=== PATIENT | female | born 1985 | race American Indian/Alaskan Native ===

== ENCOUNTER 2017-06-28 21:59 | Inpatient (IN) | payer SELFPAY ==
[2017-06-28 23:08] LABS: Basophils % (Auto) 0.2 % (0.0-1.8); Hematocrit 39.3 % (30.3-42.9); Hemoglobin 13.3 gm/dl (10.1-14.3); Mean Corpuscular HGB Conc 34 % (30-34); Mean Corpuscular Hemoglobin 27 pg (28-32); Mean Corpuscular Volume 78 fl (79-97); Platelet Count 488 K/mm3 (140-440); Red Blood Count 5.02 M/mm3 (3.65-5.03); Red Cell Distribution Width 14.6 % (13.2-15.2); White Blood Count 5.8 K/mm3 (4.5-11.0)
[2017-06-28 23:16] LABS: Anion Gap 26 mmol/L; Blood Urea Nitrogen 29 mg/dL (7-17); Carbon Dioxide 17 mmol/L (22-30); Chloride 97.8 mmol/L (98-107); Glucose 101 mg/dL (65-100); Potassium 4.7 mmol/L (3.6-5.0); Sodium 136 mmol/L (137-145)
[2017-06-29] MEDS ORDERED: NACL 0.9% 1000 ML 1,000 ML IV ONE (09:35)
[2017-06-29] MEDS ORDERED: INDERAL PO ONE (09:38)
--- NOTE | 2017-06-29 09:57 | Emergency Department Report ---
ED General Adult HPI - General Chief complaint: Chest Pain Stated complaint: CHEST PAIN Time Seen by Provider: 06/29/17 09:00 Source: patient Mode of arrival: Ambulatory Limitations: No Limitations - History of Present Illness Initial comments: 31 y/o female complain of chest pain ,n/v and weight lose of greater than 6O lb over the last couple month .pt state generalized weakness . Patient was emancipated. Currently complaining of chest pain 01/11. Patient current has a history of hypothyroidism. Patient is currently non compliant with Inderal. Onset/Timin -: days(s) Severity scale (0 -10): 5 Quality: aching Consistency: constant Improves with: none Worsens with: none Associated Symptoms: chest pain - Related Data Allergies Allergy/AdvReac Type Severity Reaction Status Date / Time almonds Allergy Unknown Uncoded 06/28/17 22:09 cashews Allergy Unknown Uncoded 06/28/17 22:09 mustard Allergy Unknown Uncoded 06/28/17 22:10 peanuts Allergy Unknown Uncoded 06/28/17 22:09 ED Review of Systems ROS: Stated complaint: CHEST PAIN Other details as noted in HPI Constitutional: malaise Eyes: denies: eye pain, eye discharge, vision change ENT: denies: ear pain, throat pain Respiratory: denies: cough, shortness of breath, wheezing Cardiovascular: chest pain, palpitations Endocrine: no symptoms reported, unexplained weight loss Gastrointestinal: denies: abdominal pain, nausea, diarrhea Genitourinary: denies: urgency, dysuria, discharge Musculoskeletal: denies: back pain, joint swelling, arthralgia Skin: denies: rash, lesions Neurological: denies: headache, weakness, paresthesias Psychiatric: denies: anxiety, depression Hematological/Lymphatic: denies: easy bleeding, easy bruising ED Past Medical Hx - Past Medical History Additional medical history: Hyperthyroidism - Surgical History Additional Surgical History: ectopic - Social History Smoking Status: Never Smoker Substance Use Type: None ED Physical Exam - General Limitations: No Limitations General appearance: alert, in no apparent distress - Head Head exam: Present: atraumatic, normocephalic - Eye Eye exam: Present: normal appearance - ENT ENT exam: Present: mucous membranes moist - Neck Neck exam: Present: normal inspection - Respiratory Respiratory exam: Present: normal lung sounds bilaterally. Absent: respiratory distress - Cardiovascular Cardiovascular Exam: Present: regular rate, normal rhythm. Absent: systolic murmur, diastolic murmur, rubs, gallop - GI/Abdominal GI/Abdominal exam: Present: soft, normal bowel sounds - Extremities Exam Extremities exam: Present: normal inspection - Back Exam Back exam: Present: normal inspection - Neurological Exam Neurological exam: Present: alert, oriented X3 - Psychiatric Psychiatric exam: Present: normal affect, normal mood - Skin Skin exam: Present: warm, dry, intact, normal color. Absent: rash ED Course Vital Signs 06/28/17 06/29/17 06/29/17 22:12 02:06 09:08 Temperature 98.4 F 98.3 F Pulse Rate 136 H 97 H 104 H Respiratory 18 18 18 Rate Blood Pressure 152/98 131/74 Blood Pressure 103/64 [Left] O2 Sat by Pulse 98 100 97 Oximetry ED Medical Decision Making - Lab Data Result diagrams: 06/28/17 22:34 06/28/17 22:34 - Medical Decision Making consult with Dr. Lock for admission .pt had abnormal labs and VS .TSH <0.005 and free T4 7.77H consult with for admission Critical care attestation.: If time is entered above; I have spent that time in minutes in the direct care of this critically ill patient, excluding procedure time. ED Disposition Condition: Stable Referrals: PRIMARY CARE, [Primary Care Provider] - 3-5 Days
--- NOTE | 2017-06-29 10:09 | XRay Report ---
ROUTINE CHEST, TWO VIEWS: HISTORY: Tachycardia. The trachea, heart, mediastinal contour, lung perez and bony thorax are unremarkable. IMPRESSION: Unremarkable chest x-ray.
[2017-06-29] MEDS ORDERED: LUGOL'S SOLUTION 5% PO STA (10:19)
[2017-06-29 10:34] LABS: Magnesium 2.2 mg/dL (1.7-2.3)
[2017-06-29] MEDS ORDERED: DULCOLAX PR PRN (10:51)
[2017-06-29] MEDS ORDERED: MILK OF MAGNESIA PO PRN (10:51)
[2017-06-29] MEDS ORDERED: TYLENOL PO PRN (10:51)
[2017-06-29] MEDS ORDERED: ZOFRAN IV PRN (10:51)
[2017-06-29 11:20] LABS: INR 1.27 (0.87-1.13)
[2017-06-29] MEDS ORDERED: LOPRESSOR PO SCH (14:00)
[2017-06-30] MEDS ORDERED: LOPRESSOR PO SCH (02:00)
--- NOTE | 2017-06-30 02:35 | Admit Criteria Form ---
Admission Criteria Documentation: CARDIOLOGY GRG Clinical Indications for Admission to Inpatient Care ( Place 'X' for any and all applicable criteria): Hospital admission is needed for appropriate care of the patient because of ANY ONE of the following (1): [ ] I. Hemodynamic instability as indicated by ALL of the following (1)(2)(3) (4)(5) [ ]a) Vital signs or other findings not as expected for chronic patient condition or baseline [ ]b) Instability indicated by ANY ONE of the following: [ ]i) Hypotension [ ]ii) Symptomatic Tachycardia unresponsive to treatment ( e.g., analgesia, fluids, sedation as indicated) [ ]iii) Inadequate perfusion indicated by ANY ONE of the following: [ ] 1) Lactic acidosis (> 2 mmol/L) [ ] 2) New abnormal capillary refill (> 3 seconds) [ ] 3) Reduced urine output [ ] 4) New altered mental status [ ]iv) Orthostatic vital sign changes unresponsive to treatment (e.g., fluids) [ ]v) IV inotropic or vasopressor medication required to maintain adequate blood pressure or perfusion [ ] II. Severe heart failure as indicated by ANY ONE of the following(17)(18) [ ]a) Respiratory distress [ ]b) Hypotension [ ]c) Anasarca (refractory to outpatient therapy) [ ]d) Cardiac arrhythmias of immediate concern [ ]e) Myocardial ischemia [ ] III. Cardiac arrhythmias or findings of immediate concern indicated by ANY ONE of the following (19)(20): [ ] a) Heart rhythms that are inherently dangerous or unstable indicated by ANY ONE of the following (21)(22)(23): [ ] i) Resuscitated ventricular fibrillation or cardiac arrest [ ] ii) Ventricular escape rhythm [ ] iii) Sustained ventricular tachycardia (30 seconds or more of ventricular rhythm at greater than 100 beats per minute) [ ] iv) Nonsustained ventricular tachycardia and ANY ONE of the following: [ ] 1) Suspected cardiac ischemia as cause or consequence of ventricular tachycardia [ ] 2) In setting of acute myocarditis [ ] b) Unstable cardiac conduction defects indicated by ANY ONE of the following(23)(24)(25) [ ] i) Type II second-degree atrioventricular block [ ]ii) Third-degree atrioventricular block [ ]iii) New-onset left bundle branch block with suspected myocardial ischemia [ ]c) Any heart rhythm and ANY ONE of the following (21)(22)(26)(27) (28) [ ] i) Continuous long-term ECG monitoring needed (e.g., initiation of drug requiring monitoring for more than 24 hours) [ ] ii) Patient has automatic implanted cardioverter defibrillator that is repeatedly firing, malfunctioning, or in need of immediate adjustment of settings beyond the scope of ambulatory or observation care [ ]d) Heart rhythms of concern due to ANY ONE of the following: [ ] i) Hypotension [ ] ii) Respiratory distress [ ] iii) Association with other significant symptoms (e.g., bradycardia with syncope or ongoing dizziness, supraventricular tachycardia with chest pain (14)(15)(17) [ ] IV. Monitoring for cardiac contusion beyond the scope of observation care needed [A](30)(31)(32) [ ] V. Surgical or device complication (e.g., valve replacement complication , pacemaker dysfunction) (35)(41)(44)(45)(46) [ ] . Inpatient palliative care needed. [B](49) Also use Inpatient Palliative Care Criteria [ ] VII. Nonbacterial thrombotic (marantic) endocarditis (36)(43)(47)(48) [X ] VIII. Cardiology condition, symptom, or finding for which emergency and observation care has failed or are not considered appropriate. [ ] IX. Acute valvular disease requiring inpatient as indicated by ANY ONE of the following (41) [ ]a) Acute valvular regurgitation (42) [ ]b) Noninfectious valvulitis (43) [ ]c) Obstructive valve thrombosis [ ]d) Paravalvular leak [ ]e) Other significant valvular disorder remaining after emergency or observation level of care (as appropriate) [ ]X. Pericardial disease requiring inpatient treatment as indicated by ANY ONE of the following (33)(34)(35)(36)(37) [ ]a) Suspected tamponade (38)(39)(40) [ ]b) Hemopericardium [ ]c) Other significant pericardial disorder remaining after emergency or observation level of care (as appropriate) [ ] XI. Cardiac ischemia beyond scope of emergency and observation care. [ ] XII. Hypertension requiring inpatient treatment as indicated by ANY ONE of the following (6)(7)(8) [ ]a) SBP greater than 220 mm Hg or DBP greater than 120 mmHg despite treatment [ ]b) SBP greater than 140 mm Hg or DBP greater than 100 mm Hg with evidence of acute end organ damage as indicated by ANY ONE of the following [ ] i) Altered mental status [ ] ii) Acute renal failure as indicated by new onset of ANY ONE of the following (9)(10)(11)(12)(13) [ ]1) 3-fold rise in serum creatinine from baseline [ ]2) Serum creatinine greater than 4 mg/dL ( 354 micromoles/L) with acute rise greater than 0.5 mg/dL (44.2 micromoles/L) [ ]3) Reduction of more than 75% in estimated glomerular filtration rate from baseline [ ]4) Estimated glomerular filtration rate less than 35 mL/min/1.73m2 (0.59 mL/sec/1.73m2) in child up to 18 years of age [ ]5) Cessation of urine output indicated by ALL of the following [ ]A. Adequate volume status [ ]B. Inadequate urine output as indicated by ANY ONE of the following [ ]a. Urine output less than 0.3 mL/kg/hr for 24 hours [ ]b. Anuria (urine output less than 0.1 mL/kg/hr) for 12 hours [ ] iii) Aortic dissection [ ] iv) Myocardial Ischemia [ ] v) Left ventricular heart failure [ ]vi) Retinal Hemorrhage [ ]vii) Other significant finding [ ]c) Hypertension in child requiring inpatient treatment as indicated by ALL of the following(14)(15)(16) [ ] i) Outpatient treatment not effective, not available, or not appropriate [ ]ii) SBP or DBP greater than 95th percentile for age [ ]iii) Evidence of acute end organ damage as indicated by ANY ONE of the following [ ]1) Altered mental status [ ]2) Acute renal failure as indicated by new onset of ANY ONE of the following(9)(10)(11)(12)(13) [ ]A. 3-fold rise in serum creatinine from baseline [ ]B. Serum creatinine greater than 4 mg/dL (354 micromoles/L) with acute rise greater than 0.5 mg/dL (44.2 micromoles/L) [ ]C. Reduction of more than 75% in estimated glomerular filtration rate from baseline [ ]D. Estimated glomerular filtration rate less than 35 mL/min/1.73m2 (0.59 mL/sec/1.73m2) in child up to 18 years of age [ ]E. Cessation of urine output indicated by ALL of the following [ ]a. Adequate volume status [ ]b. Inadequate urine output as indicated by ANY ONE of the following [ ]i) Urine output less than 0.3 mL/kg/hr for 24 hours [ ]ii) Anuria ( urine output less than 0.1 mL/kg/hr) for 12 hours [ ]3) Severe headache [ ]4) Visual disturbance [ ]5) Retinal hemorrhage [ ]6) Other significant finding [ ]XIII. Complications of transplanted heart indicated by ANY ONE of the following(61): [ ]a) Acute graft rejection requiring inpatient management (eg, intravenous immunosuppression)(62)(63) [ ]b) Acute graft heart failure indicated by ANY ONE of the following(64): [ ]i) Hemodynamic instability [ ]ii) Cardiac arrhythmias of immediate concern [ ]iii) Pulmonary edema that is very severe (eg, mechanical ventilation needed, imminent or likely, need for 100% oxygen to keep oxygen saturation above 90%) [ ]iv) Pulmonary edema that is persistent as indicated by ALL of the following: [ ]1) New need for oxygen therapy to keep oxygen saturation above 90% (or increased FiO2 need from baseline) [ ]2) Has not improved sufficiently with emergency department or observation care IV diuretics or other heart failure treatments[E] [ ]v) Altered mental status that is severe or persistent [ ]vi) Increased creatinine (new on laboratory test) with reduction of more than 50% in estimated glomerular filtration rate from baseline [ ]vii) Progressively (ongoing) rising creatinine (known from past laboratory test) with reduction of more than 25% in estimated glomerular filtration rate from baseline [ ]viii) Acute renal failure [ ]ix) Acute peripheral ischemia (eg, examination shows pulseless, cool, mottled, or cyanotic extremity) [ ]x) Pulmonary artery catheter monitoring needed [ ]xi) Other sign or symptom of heart failure requiring inpatient treatment (ie, too severe or not responsive to outpatient and observation care treatment) [ ]c) Infection requiring inpatient management (eg, Hemodynamic instability, need for intravenous antimicrobial treatment)(66)(67)(68)(69)(70) [ ]d) Cardiac allograft vasculopathy requiring inpatient management ( eg evidence of cardiac ischemia)(71) [ ]e) Other complication of transplanted heart (eg, stroke, severe pulmonary hypertension, severe valvular dysfunction) requiring inpatient management(72) The original [facility] content created by [facility] has been revised. The portions of the content which have been revised are identified through the use of italic text or in bold, and [facility] has neither reviewed nor approved the modified material. All other unmodified content is copyright [facility]. Please see references footnoted in the original [facility] edition 2016 Admission Criteria Met: Yes
[2017-06-30] MEDS: LOPRESSOR PO SCH ×2 (06:25→18:37)
--- NOTE | 2017-06-30 15:53 | Progress Note ---
Assessment and Plan - Patient Problems (1) Thyrotoxicosis Current Visit: Yes Status: Acute Qualifiers: Thyrotoxicosis type: with diffuse goiter Thyrotoxic crisis or storm presence: without thyrotoxic crisis or storm Qualified Code(s): E05.00 - Thyrotoxicosis with diffuse goiter without thyrotoxic crisis or storm Plan to address problem: Patient started on Methimazole and Metoprolol.Will get a Thyroid scan. Probable discharge tomorrow (2) Chest pain Current Visit: Yes Status: Acute Qualifiers: Chest pain type: chest pain on breathing Ischemic chest pain type: I Qualified Code(s): R07.1 - Chest pain on breathing Plan to address problem: TST in AM (3) DVT prophylaxis Current Visit: Yes Status: Acute Plan to address problem: On Lovenox 40 mg sq qd Subjective Date of service: 06/30/17 Principal diagnosis: Thyrotoxicosis Interval history: Symptomatically better Objective - Exam Narrative Exam: lying confortably and more cheerful - Constitutional Vitals: Vital Signs - 12hr 06/30/17 06/30/17 06/30/17 04:31 08:43 08:49 Temperature 97.7 F 98.1 F Pulse Rate 96 H 92 H 91 H Respiratory 20 18 Rate Blood Pressure 121/61 108/59 O2 Sat by Pulse 98 97 Oximetry 06/30/17 06/30/17 13:22 15:49 Temperature 98.7 F Pulse Rate 95 H Respiratory 18 Rate Blood Pressure 131/59 O2 Sat by Pulse 97 98 Oximetry General appearance: Present: no acute distress, well-nourished - EENT Eyes: PERRL, EOM intact ENT: hearing intact, clear oral mucosa Ears: bilateral: normal - Neck Neck: supple, normal ROM, enlarged thyroid - Respiratory Respiratory effort: normal Respiratory: bilateral: CTA - Breasts Breasts: normal - Cardiovascular Heart rate: 100 Rhythm: regular Heart Sounds: Present: S1 & S2. Absent: gallop, rub Extremities: pulses intact, No edema, normal color, Full ROM - Gastrointestinal General gastrointestinal: Present: soft, non-tender, non-distended, normal bowel sounds - Genitourinary Female genitourinary: normal - Integumentary Integumentary: clear, warm, dry - Musculoskeletal Musculoskeletal: 1, strength equal bilaterally - Neurologic Neurologic: moves all extremities - Psychiatric Psychiatric: memory intact, appropriate mood/affect, intact judgment & insight - Allied health notes Allied health notes reviewed: nursing, case management - Labs CBC & Chem 7: 06/28/17 22:34 06/28/17 22:34 - Imaging and cardiology EKG: report reviewed Chest x-ray: report reviewed
--- NOTE | 2017-06-30 15:53 | Event Note ---
Date: 06/30/17 See H/p in reports
[2017-06-30] MEDS ORDERED: TAPAZOLE PO SCH (17:00)
[2017-06-30 18:19] LABS: Creatine Kinase MB 1.9 ng/mL (0.0-4.0)
[2017-06-30 18:20] LABS: Creatine Kinase 44 units/L (30-135)
--- NOTE | 2017-06-30 23:29 | History and Physical Report ---
CHIEF COMPLAINT: 1. Chest pain. 2. Weight loss of 60 pounds over the last 6 months. HISTORY OF PRESENT ILLNESS: A 31-year-old -[place] female who diagnosed with thyrotoxicosis in the past, not taking any medication especially propranolol because of side effects, comes in for weight loss of 60 pounds, tremulousness and left-sided chest pain. Chest pain is nonradiating. No diaphoresis. Palpitations present. Shortness of breath present. No fever. No recent travel. PAST MEDICAL HISTORY: Significant for thyrotoxicosis. PAST SURGICAL HISTORY: Ectopic . SOCIAL HISTORY: Does not smoke. No alcohol. No recreational drugs. FAMILY HISTORY: Hypertension. REVIEW OF SYSTEMS: Significant for left-sided chest pain, weight loss, and tremulousness. Otherwise, review of systems is essentially negative. All systems reviewed. PHYSICAL EXAMINATION: GENERAL: Young female, cooperating examination. VITAL SIGNS: Blood pressure is 121/61, pulse is 96, temperature is 97.7, respiratory rate is 20. HEENT: Unremarkable. Pupils equal and reactive. NECK: Supple. No lymphadenopathy. No thyromegaly. LUNGS: Clear to auscultation and percussion. Good air entry. CARDIOVASCULAR: S1, S2 heard. No gallop. No murmur. No rub. Apical impulse in left fifth intercostal space and midclavicular line. ABDOMEN: Soft and benign. No hepatosplenomegaly. No guarding. No rigidity. Hernial orifices are normal. EXTREMITIES: Good pedal pulses. No pedal edema. Slightly tremulous hands. CENTRAL NERVOUS SYSTEM: No focal deficits. SKIN: Normal. LABORATORY DATA: Significant for free T4 of 7.77, TSH of less than 0.005. Electrolytes are normal. BUN and creatinine is 29 and 0.5. CBC is normal. DIAGNOSTIC DATA: EKG shows sinus tachycardia, nonspecific ST-T wave changes. ASSESSMENT AND PLAN: 1. Chest pain, rule out myocardial infarction, chest pain protocol. Exercise stress test ordered. 2. Thyrotoxicosis. The patient was started on metoprolol 50 mg q. 12 hours to control her palpitations. The patient does not want to be propranolol because of the side effects of abdominal discomfort and not feeling well after taking propranolol. The patient was also started on methimazole 15 mg p.o. q. 24 hours. Also, thyroid scan ordered because of the diffuse goiter. 3. Deep venous thrombosis prophylaxis, Lovenox 40 mg subcutaneous daily. Discussed with the patient at length options. JOB# [id number] ANTONIO/ANGELINA
[2017-06-30 23:47] LABS: Creatine Kinase MB 1.7 ng/mL (0.0-4.0)
[2017-06-30 23:48] LABS: Creatine Kinase 47 units/L (30-135)
[2017-07-01] MEDS: LOPRESSOR PO SCH (05:17)
[2017-07-01] MEDS ORDERED: MOTRIN PO PRN (08:42)
[2017-07-01] MEDS ORDERED: LEXISCAN IV ONE ×2 (11:36)
--- NOTE | 2017-07-01 16:40 | Discharge Summary ---
Providers - Providers Date of Admission: 06/29/17 11:34 Date of discharge: 07/01/17 Attending physician: JOSE MAGUIRE Primary care physician: PANDA MURILLO MD Hospitalization Condition: Stable Hospital course: See D/c summary in reports-dictated Disposition: DC-01 TO HOME OR SELFCARE - Discharge Diagnoses (1) Thyrotoxicosis Status: Acute Qualifiers: Thyrotoxicosis type: with diffuse goiter Thyrotoxic crisis or storm presence: without thyrotoxic crisis or storm Qualified Code(s): E05.00 - Thyrotoxicosis with diffuse goiter without thyrotoxic crisis or storm Comment: D/c on Methimazole 5 mg po q8 and metoprolol 25 mg po q12 .Thyroid scan as out patient (2) Chest pain Status: Acute Qualifiers: Chest pain type: chest pain on breathing Ischemic chest pain type: I Qualified Code(s): R07.1 - Chest pain on breathing Comment: Stress negative (3) DVT prophylaxis Status: Acute Core Measure Documentation - Palliative Care Palliative Care/ Comfort Measures: Not Applicable - Core Measures Any of the following diagnoses?: none Exam - Physical Exam Narrative exam: lying confortably and more cheerful - Constitutional Vitals: Temp Pulse Resp BP Pulse Ox 98.0 F 85 20 117/82 98 07/01/17 08:00 07/01/17 08:00 07/01/17 08:56 07/01/17 08:00 07/01/17 10:00 General appearance: Present: no acute distress, well-nourished - EENT Eyes: Present: PERRL ENT: hearing intact, clear oral mucosa - Neck Neck: Present: supple, normal ROM - Respiratory Respiratory effort: normal Respiratory: bilateral: CTA - Cardiovascular Heart Sounds: Present: S1 & S2. Absent: rub, click - Extremities Extremities: pulses symmetrical, No edema Peripheral Pulses: within normal limits - Abdominal General gastrointestinal: Present: soft, non-tender, non-distended, normal bowel sounds Female genitourinary: Present: normal - Integumentary Integumentary: Present: clear, warm, dry - Musculoskeletal Musculoskeletal: gait normal, strength equal bilaterally - Psychiatric Psychiatric: appropriate mood/affect, intact judgment & insight - Neurologic Neurologic: CNII-XII intact, moves all extremities Plan Activity: no restrictions Diet: regular Follow up with: PRIMARY CARE, [Primary Care Provider] - 3-5 Days
--- NOTE | 2017-07-01 17:31 | Discharge Summary ---
HOSPITAL COURSE: The patient was admitted for chest pain, weight loss of 60 pounds, high T4 and T3 levels and low TSH levels. The patient was admitted for thyrotoxicosis with no crisis, chest pain, rule out OR and weight loss of 60 pounds. The patient has not been taking her propranolol because of side effects with propranolol. The patient stated that she had abdominal discomfort. The patient was started on metoprolol because of her intolerance to propranolol and patient did well on metoprolol. The patient also was started on methimazole. Thyroid scan could not be done because the patient was initiated on methimazole. Thyroid scan to be done as an outpatient. Also, this patient had a stress test which was negative. The patient is being discharged on metoprolol 25 q.12h. and methimazole 5 mg p.o. q.8h. Follow up as outpatient. We will get thyroid scan as outpatient. DISCHARGE DIAGNOSES: 1. Thyrotoxicosis without storm. 2. Chest pain. 3. Weight loss of 60 pounds secondary to thyrotoxicosis. Follow up in 1 week with primary care. JOB# [id number] ANTONIO/ANGELINA
[2017-07-02 13:16] VITALS: BP 126/72
== END 2017-07-01 17:20 | disposition home or self-care (01) | DRG 645 ==
LOC: ED 21:59 → 4A 06-29 11:34
PROVIDERS: ADMIT Internal Medicine; ATTEND Internal Medicine
DX: E05.00 Thyrotoxicosis with diffuse goiter without thyrotoxic crisis or storm (principal); R07.9 Chest pain, unspecified; Z88.8 Allergy status to other drugs, medicaments and biological substances; Z91.010 Allergy to peanuts; I10 Essential (primary) hypertension; Z82.49 Family history of ischemic heart disease and other diseases of the circulatory system; Z91.19 Patient's noncompliance with other medical treatment and regimen; R63.4 Abnormal weight loss; Z68.20 Body mass index [BMI] 20.0-20.9, adult
CPT/HCPCS: 36415; 71020; 78452; 80048; 82550; 82553; 83690; 83735; 83880; 84439; 84443; 84484; 84703; 85025; 85610; 85730; 93005; 93010; 93017; 96374; 96375; A9502; J1720; J2405; J2785; J7030